=== PATIENT | male | born 1960 | race Caucasian/White ===

== ENCOUNTER 2022-12-20 15:47 | Emergency (ER) | payer OTHER ==
[~2022-12-20] VITALS: Ht 185.4 cm; Wt 79.4 kg
--- NOTE | 2022-12-20 16:00 | NUR ---
[facility]RA FOR RIGHT INDEX FINGER DISCOLORATION. A/O X 3, ABLE TO MAKE NEEDS KNOWN, TOLERATING WELL ON ROOM AIR. WILL CONTINUE TO MONITOR.
[2022-12-20 17:37] VITALS: BP 130/80; TEMP 98
--- NOTE | 2022-12-20 18:32 | NUR ---
CALLED [facility] FOR TRANSPORT ETA 90 MINS.
--- NOTE | 2022-12-20 18:34 | NUR ---
CALLED [facility], REPORT GIVEN TO DANIELLE MOLINA
[2022-12-20 20:10] VITALS: O2SAT 96
--- NOTE | 2022-12-20 20:10 | NUR ---
PT TRANSFERRED BACK TO [facility] VIA AMBULANCE IN [facility]. VS WNL. REPORT GIVEN TO EMT.
== END 2022-12-20 20:11 ==
LOC: ER 15:53
DX: S60.131A Contusion of right middle finger with damage to nail, initial encounter (principal); I10 Essential (primary) hypertension; E11.9 Type 2 diabetes mellitus without complications; X58.XXXA Exposure to other specified factors, initial encounter; Y93.89 Activity, other specified; Y92.89 Other specified places as the place of occurrence of the external cause; Y99.8 Other external cause status
CPT/HCPCS: 73140-TC